=== PATIENT | female | born 1995 | race African-American/Black ===

== ENCOUNTER 2018-12-15 07:22 | Emergency (ER) | payer SELFPAY ==
[~2018-12-15] VITALS: Ht 175.3 cm; Wt 108.9 kg
--- NOTE | 2018-12-15 07:31 | NUR ---
ED Nurse Note: Pt is came into the ER w/ complaints of lateral incisor toothache since yesterday. Complaining of 10/10 toothache. Non radiating. No discharge, no bleeding, no foul smell. A + O x4. Ambulatory. Skin warm to touch.
[2018-12-15 07:32] VITALS: BP 125/85
--- NOTE | 2018-12-15 08:04 | Emergency Room Report ---
History of Present Illness General Chief Complaint: Toothache Source: Patient Present Illness HPI 23-year-old female with no medical problems, presents with a toothache involving the left mandibular incisor, she reports it started last night, is aching and throbbing, kept her from sleeping, denies sore throat, neck pain, fevers, vision complaints, facial swelling, trauma, and reports that she knows she needs to see a dentist. She reports the toothache has bothered her in the past, but it's not usually as severe and persistent as it has been since last night. Allergies: Coded Allergies: No Known Allergies (Unverified , 12/15/18) Patient History Past Medical History: see triage record Last Menstrual Period: 11/17 Now: No Reviewed Nursing Documentation: PMH: Agreed; PSxH: Agreed Nursing Documentation-PMH Past Medical History: No Stated History Review of Systems Constitutional: Denies: fever Eye: Denies: acuity changes Respiratory: Denies: cough, shortness of breath Cardiovascular: Denies: chest pain Gastrointestinal: Denies: nausea, vomiting Skin: Denies: rash Neurological: Denies: headache Physical Exam Vital Signs Date Time Temp Pulse Resp B/P (MAP) Pulse Ox O2 Delivery O2 Flow Rate FiO2 12/15/18 07:25 98.1 65 20 127/83 98 Room Air General Appearance: well appearing, no apparent distress Head: normocephalic, atraumatic Eyes: bilateral eye PERRL, bilateral eye EOMI ENT: hearing grossly normal, normal pharynx, no angioedema, normal voice, uvula midline, moist mucus membranes, other - poor dentition, L mandibular incisor tender with posterior aspect decay, no visible pulp, no gingival erythema or edema or fluctuance Neck: full range of motion, supple, thyroid normal, no meningismus Respiratory: lungs clear, normal breath sounds, no rhonchi, no respiratory distress, no retraction, no accessory muscle use, no wheezing, speaking full sentences Cardiovascular #1: normal peripheral pulses, regular rate, rhythm, no edema, no gallop, no JVD, no murmur, no rub Gastrointestinal: non tender, soft, no guarding, no rebound Genitourinary: no CVA tenderness Musculoskeletal: no calf tenderness Neurologic: alert, oriented x3, 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 Upon my examination patient has no submandibular nor gingival nor buccal mucosal erythema, induration, tenderness, crepitus, or any other concerning findings. Nor does patient have any history of fever, no toxic appearance, abnormal vital signs, or CN abnormalities. Very appropriate for dc home. Last Vital Signs Date Time Temp Pulse Resp B/P (MAP) Pulse Ox O2 Delivery O2 Flow Rate FiO2 12/15/18 07:32 98.1 77 20 125/85 99 Room Air Disposition: HOME, SELF-CARE Condition: Stable ESMER JOSÉ M.D Dec 15, 2018 08:04
[2018-12-15] MEDS ORDERED: PENICILLIN V P500 MG PO (08:06)
[2018-12-15] MEDS ORDERED: IBUPROFEN600 MG ORAL (08:06)
[2018-12-15 08:42] VITALS: BP 125/75
--- NOTE | 2018-12-15 08:42 | NUR ---
ED Nurse Note: Discharge instructions given to pt. Answered all questions. Verbalized understanding. A + O x4. No acute distress noted. ID band removed. Left ER w/ steady gait and all belongings.
== END 2018-12-15 08:20 | disposition home or self-care (01) ==
LOC: EMR 08:00
DX: K08.89 Other specified disorders of teeth and supporting structures (principal)
CPT/HCPCS: 99281